=== PATIENT | male | born 1940 | race Caucasian/White ===

== ENCOUNTER 2023-02-03 09:55 | Emergency (ER) | payer MEDICARE, OTHER ==
[2023-02-03 10:12] VITALS: BP 176/75; O2SAT 99
--- NOTE | 2023-02-03 11:05 | ED Physician Documentation ---
PD HPI Fall - Stated complaint Stated Complaint: GLF,HEAD INJ/KNEE - Chief complaint Chief Complaint: Trauma Hd/Nk - History obtained from History obtained from: Patient - History of Present Illness Mechanism of injury: Tripped (he was carrying object and missed step on garage stairs, falling and struck forehead/periorbital area yesterday. With frontal headache and feeling of pressure behind left eye today.) Fall distance: Standing position Where injury occurred: Home Timing - onset: Yesterday Injury(ies) location: Head (frontal), Face (left periorbital.) Associated symptoms: Other (feeling pressure left orbital area. Periorbital swelling. no diplopia but feeling like he is seeing his nose more prominently.). No: LOC, AMS, Weakness Contributing factors: No: Anticoagulated Similar symptoms before: Has not had sx before Recently seen: Not recently seen Review of Systems Eyes: denies: Loss of vision, Decreased vision (but feeling pressure in orbital area.) Skin: reports: Abrasion (s) (left forehead) Neurologic: reports: Headache, Head injury. denies: Focal weakness, Numbness, Confused, Altered mental status, LOC PD PAST MEDICAL HISTORY - Past Medical History Past Medical History: Yes Cardiovascular: Hypertension, Coronary artery disease Neuro: Other Endocrine/Autoimmune: HyPOthyroidism Other Past Medical History: subdural hematoma - Past Surgical History Past Surgical History: Yes General: Appendectomy Cardiovascular: Coronary stent, Angioplasty HEENT: Tonsil/Adenoidectomy - Present Medications Home Medications: Ambulatory Orders Medication Instructions Recorded Confirmed Aspirin [Aspir-Low] 81 mg PO DAILY 11/11/15 02/03/23 Atorvastatin Calcium 1 tab ORAL DAILY 11/11/15 02/03/23 Biotin 1 tab ORAL DAILY 11/11/15 02/03/23 Levothyroxine Sodium 1 tab ORAL DAILY 11/11/15 02/03/23 Multivitamin [Multivitamins] 1 tab ORAL DAILY 11/11/15 02/03/23 - Allergies Allergies/Adverse Reactions: Allergies Allergy/AdvReac Type Severity Reaction Status Date / Time No Known Drug Allergies Allergy Verified 02/03/23 10:07 - Social History Does the pt smoke?: No Smoking Status: Never smoker Does the pt drink ETOH?: Yes Does the pt have substance abuse?: No - Immunizations Immunizations are current?: Yes PD ED PE NORMAL - Vitals Vital signs reviewed: Yes - General General: Alert and oriented X 3, Well developed/nourished - HEENT HEENT: PERRL, EOMI (no diplopia), Other (left frontal forehead with multiple abr asions, no lacs nor FBs. Left periorbital area with swelling and there is bruisng of upper eyelid with swelling. Nose has deviation to left which pt states is chronic. No tnederness nor bleeding. ) - Neck Neck: Supple, no meningeal sign, No bony TTP, No adenopathy - Derm Derm: Normal color, Warm and dry - Neuro Neuro: Alert and oriented X 3, saas architect 2-12 intact, No motor deficit, No sensory deficit, Normal speech, Other (normal giat.) Results - Vitals Vitals: Vital Signs - 24 hr 02/03/23 10:02 Temperature 36.0 C L Heart Rate 56 L Respiratory 15 Rate Blood Pressure 176/75 H O2 Saturation 99 Oxygen O2 Source Room air - Rads (name of study) head/orbital CT Relevant Findings:: Prelim report reviewed (no ICH nor noted fractures. cheonic appearing fluid right maxillary sinus. No acuity left orbital. soft tissue swelling noted. ), EMP independent interpretation of test PD Medical Decision Making - ED course Complexity details: reviewed results (orbital and head CTs without acute bleeding/fractures/injury. Chronic right maxiallary sinus fluid noted. ), re- evaluated patient (he had gotten upset about time delay getting CT scan. A modified trauma pt came in as he was about to get taken for study. He was more relaxed after the study. I think just anxious about the injury. ), considered differential (he says he has aldo feeling of pressure around left eye. No blurrin g. Has forehead abrasions with frontal headache. Concern for ICH or facial/orbital fractures. Can get CTs. ), d/w patient ED course: pt fell yesterday and has no concussive symptoms but does have pressure feeling left periorbital area and frontal headache. Cannot exclude pt by [facility] head rules due to age. Can get imaging of orbits and head. Departure - Departure Disposition: 01 Home, Self Care Clinical Impression: Accidental fall, Periorbital contusion of left eye Clinical Impression: (Ruled Out): Facial fracture due to fall Condition: Stable Record reviewed to determine appropriate education?: Yes Follow-Up: MADELINE COTTO MD [Primary Care Provider] - Comments: I do not see any fractures or bleeding within the brain compartment or around the eye socket. The radiology report is still pending at this time. You can use ice or cool towels to the swelling around the eye. The eye itself appears normal on exam. Tylenol if needed for pains. I would anticipate improvement in the swelling and bruising over the next several days to week. Forms: PCP List Discharge Date/Time: 02/03/23 12:40
--- NOTE | 2023-02-03 12:30 | CT Report ---
PROCEDURE: ORBITS WO INDICATIONS: fall with periorbital/head injury TECHNIQUE: Noncontrast 2.0 mm axial images acquired through the orbits. For radiation dose reduction, the follo wing was used: automated exposure control, adjustment of mA and/or kV according to patient size. COMPARISON: Correlation is made FINDINGS: Image quality: Excellent. Orbits: No paravertebral soft tissue swelling is seen. No ashley soft tissue gas is seen. No loculate d fluid collection is seen. Globes are symmetrical. No metallic foreign bodies. The optic nerves ar e normal in size. No retrobulbar masses or fat abnormalities. The extra-ocular muscles are normal a nd symmetrical in appearance. Lacrimal glands are normal in size. Optic chiasm is normal. Intracranial: Visualized portions of the cerebral hemispheres, brainstem, and spinal cord are normal . Bones and sinuses: Visualized calvarium and facial bones appear intact. There is complete opacificat ion of the right maxillary sinus. Remodeling change can be seen, with retraction of the medial wall o f the right maxillary sinus. The paranasal sinuses otherwise appear clear. No significant abnormal fl uid can be seen within the mastoid air cells. Presumed cerumen can be seen involving both external auditory canals. IMPRESSION: Left periorbital soft tissue swelling is seen, without an associated fracture. On these images, no ashley orbital injury is seen. Focal chronic right maxillary sinus disease. Reviewed by: Lito Montgomery MD on 02/03/2023 11:29 AM [facility] Approved by: Lito Montgomery MD on 02/03/2023 11:29 AM [facility] Station ID: [id number]
--- NOTE | 2023-02-03 12:38 | CT Report ---
PROCEDURE: HEAD WO INDICATIONS: fall with periorbital/head injury TECHNIQUE: Noncontrast 4.5 mm thick angled axial sections acquired from the foramen magnum to the vertex. For r adiation dose reduction, the following was used: automated exposure control, adjustment of mA and/or kV according to patient size. COMPARISON: None. FINDINGS: Image quality: Excellent. CSF spaces: Basal cisterns are patent. No extra-axial fluid collections. Ventricles are normal in size and shape. Brain: No midline shift. No intracranial masses or hemorrhage. Vazquez-white matter interface is norm al. Age-related volume loss and small vessel ischemic change. Skull and face: Left periorbital swelling. Left globe intact. Calvarium and visualized facial bones are intact, without suspicious lesions. Sinuses: Opacification of the right maxillary sinus. Question previous right maxillary sinus medial n gary antral window versus lateral deformity of the medial wall of the orbit from remote trauma. IMPRESSION: 1. No acute intracranial pathology. 2. Left periorbital swelling. 3. Right maxillary sinus disease. Reviewed by: Victorino Juarez MD on 02/03/2023 12:37 PM PST Approved by: Victorino Juarez MD on 02/03/2023 12:37 PM PST Station ID: [id number]
== END 2023-02-03 12:40 | disposition home or self-care (01) ==
LOC: ED 09:55
DX: S05.12XA Contusion of eyeball and orbital tissues, left eye, initial encounter (principal); W10.9XXA Fall (on) (from) unspecified stairs and steps, initial encounter; Y93.01 Activity, walking, marching and hiking; Y92.008 Other place in unspecified non-institutional (private) residence as the place of occurrence of the external cause; I10 Essential (primary) hypertension; E03.9 Hypothyroidism, unspecified; Z79.899 Other long term (current) drug therapy; Z79.82 Long term (current) use of aspirin
CPT/HCPCS: 99283; 99284